=== PATIENT | male | born 1940 | race Caucasian/White ===

== ENCOUNTER → 2018-05-15 | Outpatient (CLI) | payer MEDICARE, BC | LOC: ZCOL.LAB 16:58 | DX: Z01.812 Encounter for preprocedural laboratory examination (principal); Z86.14 Personal history of Methicillin resistant Staphylococcus aureus infection ==

== ENCOUNTER 2018-05-18 13:09 | Inpatient (IN) | payer MEDICARE, BC ==
[~2018-05-18] VITALS: Ht 185.4 cm; Wt 101.0 kg
[2018-06-29] VITALS (11 sets, daily range): BP systolic 84–144; BP diastolic 47–88; PULSE 53–76; TEMP 0
[2018-06-29] MEDS ORDERED: COREG 3.123.125 MG/T PO (06:06)
[2018-06-29] MEDS ORDERED: ENTRESTO 24 MG1 EACH PO (06:07)
[2018-06-29] MEDS ORDERED: VYTORIN 10 MG-41 TAB PO (06:08)
[2018-06-29] MEDS ORDERED: LASIX 40MG TABL40 MG PO (06:08)
[2018-06-29] MEDS ORDERED: MAGNESIUM500 MG PO (06:09)
[2018-06-29] MEDS ORDERED: RANEXA1000 MG PO (06:09)
[2018-06-29] MEDS ORDERED: FLOMAX 0.40.4 MG/CAP PO (06:10)
[2018-06-30] VITALS: BP 95/66; PULSE 73; TEMP 98.5
[2018-06-30 01:44] LABS: BASO % 0.1 % (0.0-2.0); GRAN # 14.9 (1.4-6.5); HEMOGLOBIN 12.4 g/dl (13.5-18.0); MEAN CELL VOLUME 96 fl (80.0-100.0); MEAN CORPUSCULAR HEMOGLOBIN 33 pg (27.0-31.0); MEAN CORPUSCULAR HGB CONC 34 g/dl (33.0-37.0); MEAN PLATELET VOLUME 10.1 fl (7.4-10.4); MONO # 1.3 (0.1-0.6); MONO % 7.5 % (1.7-9.3); PLATELET COUNT 137 K/mm3 (130-400); RED BLOOD COUNT 3.76 M/mm3 (4.20-5.60); REDCELL DISTRIBUTION WIDTH-CV 12.5 % (11.5-14.5)
[2018-06-30 01:54] LABS: ALBUMIN 3.5 gm/dL (3.5-5.0); BILIRUBIN,TOTAL 0.3 mg/dL (0.0-1.0); CALCIUM 8.9 mg/dL (8.4-10.2); CREATININE, serum 1.36 mg/dL (0.66-1.25); POTASSIUM 5.1 mmol/L (3.4-5.0); TOTAL PROTEIN 6.1 gm/dL (6.4-8.2)
[2018-06-30 02:31] LABS: HEMATOCRIT 36.1 % (42.0-52.0)
[2018-06-30 04:00] VITALS: BP 91/68; PULSE 85; TEMP 99.7
[2018-06-30 06:22] LABS: HEMOGLOBIN 11.5 g/dl (13.5-18.0); MEAN CELL VOLUME 98 fl (80.0-100.0); MEAN CORPUSCULAR HEMOGLOBIN 33 pg (27.0-31.0); MEAN CORPUSCULAR HGB CONC 34 g/dl (33.0-37.0); MEAN PLATELET VOLUME 10.6 fl (7.4-10.4); PLATELET COUNT 133 K/mm3 (130-400); RED BLOOD COUNT 3.48 M/mm3 (4.20-5.60); REDCELL DISTRIBUTION WIDTH-CV 12.6 % (11.5-14.5)
[2018-06-30 06:51] LABS: CALCIUM 8.5 mg/dL (8.4-10.2); CREATININE, serum 1.25 mg/dL (0.66-1.25)
[2018-06-30 08:14] LABS: BAND 1 % (0-10); LYMPHOCYTE 8 % (20.0-51.0); NEUTROPHILS 85 % (42.0-75.2)
[2018-06-30 08:15] LABS: PLATELET ESTIMATE DECREASED (NORMAL)
[2018-06-30 08:58] VITALS: BP 124/60; PULSE 66; TEMP 98
[2018-06-30 11:45] VITALS: BP 110/59; PULSE 64; TEMP 97.8
[2018-06-30 14:10] LABS: PH 7 (5-8); SQUAMOUS EPITHELIAL None Seen /hpf; URINE APPEARANCE Clear; URINE BACTERIA None Seen /hpf; URINE BILIRUBIN Negative (NEGATIVE); URINE BLOOD Negative (NEGATIVE); URINE COLOR Yellow; URINE GLUCOSE 1+ (NEGATIVE); URINE KETONE Negative (NEGATIVE); URINE LEUKOCYTE ESTERASE Negative (NEGATIVE); URINE NITRATE Negative (NEGATIVE); URINE PROTEIN(semi-quant) Negative (NEGATIVE); URINE RBC 0-2 /hpf; URINE UROBILINOGEN Negative (NEGATIVE)
[2018-06-30 14:21] LABS: COLLECTION METHOD CLEAN CATCH
[2018-06-30 16:01] VITALS: BP 97/61; PULSE 65; TEMP 98
[2018-06-30 22:27] VITALS: BP 120/63; PULSE 71; TEMP 98.9
[2018-07-01 00:44] VITALS: BP 123/72; PULSE 68; TEMP 98.6
[2018-07-01 05:06] VITALS: BP 124/68; PULSE 65; TEMP 98.3
[2018-07-01 08:00] VITALS: BP 118/66; PULSE 64; TEMP 98
[2018-07-01 10:56] LABS: CALCIUM 8.6 mg/dL (8.4-10.2); CREATININE, serum 1.23 mg/dL (0.66-1.25); POTASSIUM 4.7 mmol/L (3.4-5.0)
[2018-07-01 11:15] VITALS: BP 97/59; PULSE 58; TEMP 97.4
[2018-07-01 11:18] LABS: BASO # 0.1 (0.0-0.2); BASO % 0.3 % (0.0-2.0); EOS # 0.2 (0.0-0.7); EOS % 1.3 % (0-4.0); GRAN % 74.6 % (42.2-75.2); HEMOGLOBIN 13.2 g/dl (13.5-18.0); LYMPH # 2.1 (1.2-3.4); LYMPH % 13.3 % (20.0-51.0); MEAN CELL VOLUME 99 fl (80.0-100.0); MEAN CORPUSCULAR HEMOGLOBIN 34 pg (27.0-31.0); MEAN CORPUSCULAR HGB CONC 34 g/dl (33.0-37.0); MEAN PLATELET VOLUME 10.3 fl (7.4-10.4); MONO # 1.6 (0.1-0.6); MONO % 9.7 % (1.7-9.3); PLATELET COUNT 143 K/mm3 (130-400); RED BLOOD COUNT 3.94 M/mm3 (4.20-5.60); REDCELL DISTRIBUTION WIDTH-CV 13.2 % (11.5-14.5)
[2018-07-01 16:50] VITALS: BP 88/47; PULSE 62; TEMP 98.1
[2018-07-01 20:00] VITALS: BP 95/57; PULSE 64; TEMP 98.7
[2018-07-02] VITALS: BP 99/62; PULSE 94; TEMP 98.9; TEMP 99.8
[2018-07-02 04:00] VITALS: BP 99/60; PULSE 64; TEMP 97.8
[2018-07-02 06:34] LABS: BASO % 0.2 % (0.0-2.0); EOS # 0.2 (0.0-0.7); EOS % 1.2 % (0-4.0); GRAN # 10.5 (1.4-6.5); GRAN % 72.9 % (42.2-75.2); HEMOGLOBIN 11.3 g/dl (13.5-18.0); LYMPH # 2.3 (1.2-3.4); MEAN CELL VOLUME 98 fl (80.0-100.0); MEAN CORPUSCULAR HEMOGLOBIN 33 pg (27.0-31.0); MEAN CORPUSCULAR HGB CONC 33 g/dl (33.0-37.0); MEAN PLATELET VOLUME 10.8 fl (7.4-10.4); MONO # 1.3 (0.1-0.6); PLATELET COUNT 130 K/mm3 (130-400); RED BLOOD COUNT 3.45 M/mm3 (4.20-5.60); REDCELL DISTRIBUTION WIDTH-CV 13.2 % (11.5-14.5)
[2018-07-02 06:42] LABS: HEMATOCRIT 33.8 % (42.0-52.0)
[2018-07-02 06:45] LABS: CALCIUM 8.4 mg/dL (8.4-10.2); CREATININE, serum 1.31 mg/dL (0.66-1.25); POTASSIUM 4.7 mmol/L (3.4-5.0)
[2018-07-02 06:52] LABS: TROPONIN-I 0.736 ng/mL (0.000-0.035)
[2018-07-02 07:56] VITALS: BP 116/59; PULSE 63; TEMP 97.5
[2018-07-02] MEDS ORDERED: PERCOCET 325 MG1 TA2 PO (10:37)
[2018-07-02] MEDS ORDERED: ASPIRIN 32325 MG/TAB PO (10:39)
[2018-07-02 12:07] VITALS: BP 97/56; PULSE 61; TEMP 97.8
== END 2018-07-02 14:30 | disposition home or self-care (01) | DRG 483 ==
LOC: JCC 06-29 05:17
PROVIDERS: Nurse Practitioner; Physician Assistant; ADMIT Orthopaedic Surgery Sports Medicine
PROC: 0RRJ00Z Replacement of Right Shoulder Joint with Reverse Ball and Socket Synthetic Substitute, Open Approach (ICD-10-PCS; principal; 2018-06-29 07:30)
DX: M19.011 Primary osteoarthritis, right shoulder (principal); I21.A1 Myocardial infarction type 2; I50.22 Chronic systolic (congestive) heart failure; I25.10 Atherosclerotic heart disease of native coronary artery without angina pectoris; Z95.1 Presence of aortocoronary bypass graft; E78.5 Hyperlipidemia, unspecified; E87.5 Hyperkalemia; R73.9 Hyperglycemia, unspecified; I11.0 Hypertensive heart disease with heart failure; Z95.5 Presence of coronary angioplasty implant and graft
CPT/HCPCS: 99231-AI; A9284; C1776; J0690; J1100; J2250; J2405; J2704; J2795; J3370; J7030; J7120